=== PATIENT | male | born 1960 | race Caucasian/White ===

== ENCOUNTER → 2020-05-18 15:29 | Outpatient (POV) | payer SELFPAY | PROVIDERS: Visit Provider Dermatology | DX: Z00.00 Encounter for general adult medical examination without abnormal findings (principal) ==

== ENCOUNTER 2020-07-23 15:43 | Emergency (ER) | payer OTHER, SELFPAY ==
[2020-07-23 15:50] VITALS: BP 128/84; PULSE 68; RESP 16; TEMP 36.7; O2SAT 95; BMI 28.8
--- NOTE | 2020-07-23 16:07 | HMH.EDUTC ---
[facility] Disposition Clinical Impression: Exposure to COVID-19 virus Disposition: Home, Self-Care Condition on Discharge: Good Instructions: Preventing the Spread of Coronavirus Discharge Instructions Referrals: Osiel June MD [Primary Care Provider] - Time of Disposition: 16:08 Medical Decision Making - Shaun Inquiry Pt receiving controlled substance: No Vital Signs: 07/23/20 15:50 Temperature 98.1 F Temperature Source Oral Pulse Rate [Right Brachial] 68 Respiratory Rate 16 Blood Pressure [Right Arm] 128/84 Blood Pressure Mean [Right Arm] 98 Blood Pressure Source [Right Arm] Automatic Cuff Blood Pressure Position [Right Arm] Sitting 02 Sat by Pulse Oximetry 95 Oxygen Delivery Method Room Air Orders (Tests/Meds): ORDERS Category Date Time Status Covid-19 Nasal PCR Sendout Routine Lab 07/23/20 16:03 Ordered [facility] HPI - General Stated complaint: covid test Time Seen by Provider: 07/23/20 16:07 Mode of Arrival: Ambulatory Source of Information: Patient Limitations: No Limitations Description of Symptoms (Recalled from Triage Doc. by RN): PATIENT REQUESTING COVID TEST; DENIES EXPOSURE OR SYMPTOMS HEENT Symptoms (Recalled from RN notes): No Resp Symptoms (Recalled from RN notes): No Skin Symptoms (Recalled from RN notes): No MS Symptoms (Recalled from RN notes): No Functional Status (Recalled from RN notes): WNL - History of Present Illness Provider Complaint: Patient requesting COVID19 testing before visiting family next week. No known exposure. No symptoms. Treatments prior to arrival: none - Related Data Allergies Allergy/AdvReac Type Severity Reaction Status Date / Time No Known Allergies Allergy Verified 07/19/18 18:19 - Worker's Comp Is this a Worker's Comp case?: No [facility] History - Hepatitis A Screen Drug use history?: No High risk sexual behaviors?: No History of sexually transmitted infection?: No Currently employed?: No Childcare worker?: No Do you have indoor plumbing?: Yes Do you have electricity?: Yes Attestation statement:: This patient has been screened for Hepatitis A risk factors. I have reviewed the patient's past medical history: Yes - Social History Alcohol Intake: never Occupational Status: other ROS Obtained: Yes All systems reviewed & no additional complaints Physical Exam - General General appearance: alert, in no apparent distress - Head Head exam: normocephalic - Eye Eye exam: Present: PERRL - Chest Chest inspection: Present: symmetric chest wall rise - Respiratory Respiratory exam: Present: normal lung sounds bilaterally - Cardiovascular Cardiovascular exam: Present: regular rate, normal rhythm - Neurological Exam Neurological exam: Present: alert, oriented X3 - Psychiatric Psychiatric exam: Present: normal affect, normal mood - Skin Skin exam: Present: warm, dry
[2020-07-23 16:08] VITALS: BP 128/84; PULSE 68; RESP 16; TEMP 36.7; O2SAT 95
[2020-07-25 08:27] LABS: Covid-19 Nasal PCR Sendout UK Not Detected
== END 2020-07-23 16:10 | disposition home or self-care (01) ==
PROVIDERS: Physician Assistant; Emergency Provider Nurse Practitioner; PCP Family Medicine
DX: Z20.828 Contact with and (suspected) exposure to other viral communicable diseases (principal)
CPT/HCPCS: 99201; U0003

== ENCOUNTER 2020-08-09 15:21 | Emergency (ER) | payer OTHER, SELFPAY ==
[2020-08-09 15:35] VITALS: BP 147/76; PULSE 81; RESP 18; TEMP 36.6; O2SAT 98; BMI 29.5
--- NOTE | 2020-08-09 15:55 | HMH.EDUTC ---
[facility] [place] Disposition Clinical Impression: Encounter for laboratory testing for COVID-19 virus Disposition: Home, Self-Care Condition on Discharge: Good Instructions: Diarrhea, DI for Vomiting -- Adult, DI for COVID-19 (Suspected or Confirmed ), Coronavirus Disease 2019, Preventing the Spread of Coronavirus Discharge Instructions Additional Instructions: *Monitor Temp, Over the counter Motrin or Tylenol as directed/as needed Tylenol every 4 hours and Motrin every 6 hours (as long as your family doctor has told you that you can take it) for fever or pain. and straight to ER if unable to lower temp less than 101.0 after medication given ? Avoid fruit juices, as these do not replace minerals and can actually increase diarrhea. ? Children and adults can use sports drinks to replenish electrolytes. Younger children and infants should use products formulated for children, like oral rehydration solutions. ? Eat food in small amounts and let your stomach recover. ? Get lots of rest. You may feel tired or weak. ? No greasy or fried foods for the next 24-48 hours BRAT diet Bananas Rice Apples and [place] ? Make sure to drink plenty of liquids ? Return if needed ? Straight to ER if any life threatening symptoms ? Zofran as prescribed ? Follow up with family doctor in the next 48-72 hours if no improvement or any worsening of symptoms Follow up IMMEDIATELY for new or worsening symptoms or no Noticeable improvement over the next 48-72 hours. 911 for difficulty breathing or swallowing You were tested for today for COVID19 your test result should be back in the next 24-48 hours, you may call to the [facility] to see if your test results are back in the next 48 hours [phone] [facility] hours are 9am-9pm You was given a handout with instructions for Self Quarantine and Self isolation for while you wait on test results and what to do if they are positive If you are positive the Health Dept will be contacting you also Prescriptions: Ondansetron [Zofran 4mg ODT] 4 mg PO TIDP PRN #10 tab PRN Reason: Vomiting Transmission Status: Pending to [id number] Referrals: Osiel June MD [Primary Care Provider] - As needed Forms: Work/School Release Time of Disposition: 15:57 Medical Decision Making - Shaun Inquiry Pt receiving controlled substance: No Shaun was queried for this patient: No Vital Signs: 08/09/20 15:35 Temperature 97.8 F Temperature Source Oral Pulse Rate [Right Brachial] 81 Respiratory Rate 18 Blood Pressure [Right Arm] 147/76 H Blood Pressure Mean [Right Arm] 99 Blood Pressure Source [Right Arm] Automatic Cuff Blood Pressure Position [Right Arm] Sitting 02 Sat by Pulse Oximetry 98 Oxygen Delivery Method Room Air Orders (Tests/Meds): ORDERS Category Date Time Status Covid-19 Nasal PCR ([facility]) Routine Lab 08/09/20 15:40 Received [facility] [place] HPI - General Stated complaint: covid test Time Seen by Provider: 08/09/20 15:55 Mode of Arrival: Ambulatory Source of Information: Patient Limitations: No Limitations Description of Symptoms (Recalled from Triage Doc. by RN): PATIENT C/O DIARRHEA AND VOMITING SINCE LAST NIGHT. WANTS A COVID TEST HEENT Symptoms (Recalled from RN notes): No Resp Symptoms (Recalled from RN notes): No Skin Symptoms (Recalled from RN notes): No MS Symptoms (Recalled from RN notes): No Functional Status (Recalled from RN notes): WNL - History of Present Illness Provider Complaint: Patient state that he started having some nausea, vomiting and diarrhea last night with last eppisodes around 1030 this morning States that had a stomach bug about a week ago but he wanted to come in to get tested for COVID prior to going back to work due to symptoms - Related Data Previous Rx's Medication Instructions Recorded Ondansetron [Zofran 4mg ODT] 4 mg PO TIDP PRN #10 tab 08/09/20 Allergies Allergy/AdvReac Type Severity Reaction Status Date / Time No Known Allergies Allergy Verified 07/06
[2020-08-09 16:06] VITALS: BP 147/76; PULSE 81; RESP 18; TEMP 36.6; O2SAT 98
== END 2020-08-09 16:08 | disposition home or self-care (01) ==
PROVIDERS: Emergency Provider Nurse Practitioner; PCP Family Medicine
DX: Z20.822 Contact with and (suspected) exposure to COVID-19 (principal)
CPT/HCPCS: 99202; G0463; U0003

== ENCOUNTER → 2020-10-12 14:24 | Outpatient (POV) | payer OTHER, SELFPAY ==
[2020-10-12 15:09] LABS: Basophils % 0.6 % (0.1-2.0); Eosinophils # 0.2 K/mm3 (0.0-0.4); Eosinophils % 2.5 % (0.1-12.0); Hematocrit 45.1 % (42.0-52.0); Hemoglobin 14.6 g/dL (14.1-18.0); Lymphocytes # 2.2 K/mm3 (0.7-4.5); Lymphocytes % 31.7 % (10-50); Mean Corpuscular HGB Conc 32.4 g/dL (31.8-35.4); Mean Corpuscular Hemoglobin 29.6 pg (27.0-31.2); Mean Corpuscular Volume 91.4 fl (80-94); Monocytes # 0.5 K/mm3 (0.1-1.0); Monocytes % 6.4 % (1.7-9.3); Neutrophils # 4.1 K/mm3 (1.8-7.8); Neutrophils % 58.8 % (37.0-80.0); Platelet Count 269 K/mm3 (142-424); Red Blood Count 4.94 M/mm3 (4.60-6.20); Red Cell Distribution Width 13.8 % (11.5-17.5)
[2020-10-12 15:43] LABS: Alanine Aminotransferase 39 U/L (12-78); Albumin Level 4.6 g/dl (3.5-5.0); Albumin/Globulin Ratio 1.6 (1.1-1.8); Alkaline Phosphatase 59 U/L (38-126); Anion Gap 12.3 mEq/L (5-15); Aspartate Amino Transferase 39 U/L (17-59); Bilirubin,Total 0.4 mg/dl (0.2-1.3); Blood Urea Nitrogen 26 mg/dl (9-20); Calcium 9.5 mg/dl (8.4-10.2); Carbon Dioxide 25 mmol/L (22.0-30.0); Chloride 106 mmol/L (98-107); Estimated Glomerular Filt Rate 57 ml/min (>60); GFR (African American) 68 ML/MIN (>60); Globulin 2.8 g/dL (1.3-3.2); Glucose 91 mg/dl (74-100); Potassium 4.3 mmoL/L (3.5-5.1); Sodium 139 mmol/L (136-145); Total Protein,Serum 7.4 g/dl (6.3-8.2)
[2020-10-14 13:45] LABS: Hep A Ab, IgM Negative (Negative); Hepatitis B Core Antibody IgM Negative (Negative); Hepatitis B Surface Antigen Negative (Negative)
[2020-10-14 14:22] LABS: Hepatitis C Antibody <0.1 s/co ratio (0.0-0.9)
[2020-10-16 09:34] LABS: QuantiFERON-TB Gold Plus Negative (Negative)
== END ==
PROVIDERS: Visit Provider Dermatology
DX: R94.4 Abnormal results of kidney function studies (principal)
CPT/HCPCS: 36415; 80053; 80074; 85025; 86480

== ENCOUNTER → 2021-06-07 15:52 | Outpatient (CLI) | payer OTHER, SELFPAY | PROVIDERS: PCP Surgery; Visit Provider Nurse Practitioner | DX: Z20.822 Contact with and (suspected) exposure to COVID-19 (principal) | CPT/HCPCS: C9803; U0003; U0005 ==

== ENCOUNTER 2021-06-09 08:47 | Day surgery (SDC) | payer OTHER, SELFPAY ==
[2021-06-01 13:39] VITALS: BMI 30.2
[2021-06-09 09:00] VITALS: BP 130/74; PULSE 58; RESP 18; TEMP 36.7; O2SAT 99
--- NOTE | 2021-06-09 09:32 | HMH.ANESCL ---
[facility] Anesthesia Checklist - Patient Identification Patient Identification: Arm Band - Structural Data Admitted From: Home Planned Operative Procedure/s: colonoscopy Consent for Planned Operative Procedure(s) Verified: Yes Verified Documents: Surgical Consent, History and Physical - NPO Status Verified Time NPO: 00:00 - Additional verifications Anesthesia Reactions: No - Airway Assessment C-Spine Mobility Assessed: Yes (mp2) TMJ Mobility Assessed: Yes Dentition: Good Dentition - Neurological Assessment Level of Consciousness: Awake, Alert - Anesthesia Plan Anesthesia Risk discussed: Yes Anesthesia Plan: Verified ASA Class: II Anesthesia Type: [facility] History I have reviewed the patient's past medical history: Yes Medical History: Denies:: Cancer, Diabetes Mellitus Type 1, Diabetes Mellitus Type 2, Internal Pacemaker, MRSA, Seizures *Have you ever received a pneumonia vaccine?: No *Have you received a flu vaccine this season?: Yes Anesthesia experience/problems:: nac Other Surgeries: Yes: Colonoscopy. No: Pacemaker Amputation: No Fractures: No - *Social History Last grade of school completed: High school graduate Smoking Status: Never smoker Alcohol Intake: never Substance Use Type: denies use *Occupational Status:: employed *Travel in the last 8 weeks: None Family Hx:: No significant family history
[2021-06-09 10:41] VITALS: O2SAT 98
--- NOTE | 2021-06-09 11:26 | P.PCN_ITS ---
- Procedure: Date: 06/09/21 Patient Date of :: 1960 Procedure Performed:: Colonoscopy with polypectomy Indications:: Screening Performing Provider:: Vaughn Estrada MD Referring Provider:: . Sedation:: Monitored anesthesia care Procedure:: After informed consent was obtained the patient was taken to the endoscopy suite. Sedation ensued after the patient was transferred to the left lateral decubitus position. Pulse, blood pressure, and oxygen saturation were monitored throughout the procedure. Digital rectal exam revealed no significant ab normality. The colonoscope was placed in position. The entire colon was evaluated. The colonoscope was carefully removed and the patient was transferred to recovery in stable condition. Please see findings and specimens below for detail. Findings:: Bowel preparation fair to moderate Hemorrhoidal tag/cushions Moderate spasticity Sigmoid diverticulosis Polyps (see specimens) Specimens:: Sessile lobulated transverse colon polyp (snare) Anal canal polyp/hemorrhoid (snare) Recommendations:: Timing of repeat colonoscopy is pending pathology but likely be between 3-5 years. Complications:: No immediate Estimated blood obtained (mL): 1
[2021-06-09 11:27] VITALS: BP 103/55; PULSE 64; RESP 18; TEMP 36.3; O2SAT 92
[2021-06-09 11:45] VITALS: BP 114/64; PULSE 55; RESP 18; O2SAT 98
[2021-06-09 11:58] VITALS: BP 117/86; PULSE 53; RESP 18; O2SAT 98
== END 2021-06-09 12:00 | disposition home or self-care (01) ==
PROVIDERS: PCP Family Medicine; Visit Provider Surgery
PROC: 0DJD8ZZ Inspection of Lower Intestinal Tract, Via Natural or Artificial Opening Endoscopic (ICD-10-PCS; CPT 45385; principal; 2021-06-09 10:00)
DX: Z12.11 Encounter for screening for malignant neoplasm of colon (principal); K63.5 Polyp of colon; K64.9 Unspecified hemorrhoids; K57.30 Diverticulosis of large intestine without perforation or abscess without bleeding; K58.9 Irritable bowel syndrome, unspecified; Z79.899 Other long term (current) drug therapy
CPT/HCPCS: 45385

== ENCOUNTER → 2021-10-18 14:47 | Outpatient (POV) | payer OTHER, SELFPAY ==
[2021-10-18 15:54] LABS: Basophils # 0.1 K/mm3 (0-0.2); Basophils % 0.7 % (0.1-2.0); Eosinophils # 0.3 K/mm3 (0.0-0.4); Hematocrit 44.4 % (42.0-52.0); Hemoglobin 14.8 g/dL (14.1-18.0); Lymphocytes # 2.3 K/mm3 (0.7-4.5); Lymphocytes % 31.9 % (10-50); Mean Corpuscular HGB Conc 33.3 g/dL (31.8-35.4); Mean Corpuscular Hemoglobin 31.3 pg (27.0-31.2); Mean Corpuscular Volume 94.2 fl (80-94); Mean Platelet Volume 7.4 fl (7.4-10.4); Monocytes # 0.6 K/mm3 (0.1-1.0); Monocytes % 7.8 % (1.7-9.3); Neutrophils % 55.6 % (37.0-80.0); Platelet Count 267 K/mm3 (142-424); Red Blood Count 4.72 M/mm3 (4.60-6.20); Red Cell Distribution Width 13.6 % (11.5-17.5); White Blood Count 7.1 K/mm3 (4.8-10.8)
[2021-10-18 16:59] LABS: Alanine Aminotransferase 48 U/L (12-78); Albumin Level 4.4 g/dl (3.5-5.0); Albumin/Globulin Ratio 1.7 (1.1-1.8); Alkaline Phosphatase 49 U/L (38-126); Anion Gap 9.3 mEq/L (5-15); Aspartate Amino Transferase 40 U/L (17-59); Bilirubin,Total 0.5 mg/dl (0.2-1.3); Blood Urea Nitrogen 24 mg/dl (9-20); Carbon Dioxide 28 mmol/L (22.0-30.0); Chloride 104 mmol/L (98-107); Estimated Glomerular Filt Rate 76 ml/min (>60); GFR (African American) 92 ML/MIN (>60); Globulin 2.6 g/dL (1.3-3.2); Glucose 96 mg/dl (74-100); Potassium 4.3 mmoL/L (3.5-5.1); Sodium 137 mmol/L (136-145)
[2021-10-20 21:07] LABS: QuantiFERON-TB Gold Plus Negative (Negative)
== END ==
PROVIDERS: Visit Provider Dermatology
DX: R94.4 Abnormal results of kidney function studies (principal); Z11.1 Encounter for screening for respiratory tuberculosis; Z79.899 Other long term (current) drug therapy
CPT/HCPCS: 36415; 80053; 85025; 86480

== ENCOUNTER → 2022-09-19 11:00 | Outpatient (CLI) | payer OTHER, SELFPAY ==
[2022-09-22 00:09] LABS: QuantiFERON-TB Gold Plus Negative (Negative)
== END ==
PROVIDERS: PCP Family Medicine; Visit Provider Dermatology
DX: L40.8 Other psoriasis (principal)
CPT/HCPCS: 36415; 86480

== ENCOUNTER 2024-03-18 11:06 | Outpatient (POV) | payer OTHER, SELFPAY | END 2024-03-18 23:59 | disposition home or self-care (01) | LOC: SC 11:06 | PROVIDERS: PCP Family Medicine; Visit Provider Dermatology | DX: Z00.00 Encounter for general adult medical examination without abnormal findings (principal) ==

== ENCOUNTER 2024-07-30 15:58 | Emergency (ER) | payer BC, SELFPAY ==
[2024-07-30 15:59] VITALS: BP 155/85; PULSE 87; RESP 16; TEMP 37.1; O2SAT 97; BMI 30.2
--- NOTE | 2024-07-30 16:03 | ED_ITS ---
<Statement entered by Pati Perry DO - 07/30/24 22:09> I was consulted by the DEANNE, and we discussed the complexity of the problems being addressed. I approved the treatment and management plan for this patient's care in the emergency department, thus performing a substantive portion of the medical decision making. Pati Perry DO Discharge Plan Disposition Patient Disposition: Home, Self-Care Condition: Good Prescriptions Prescriptions: New gkvcmbdwiakrxme-vugsknpgh-MA [Bromfed DM] 2-30-10 mg/5 mL syrup 5 ml PO Q4H PRN (Reason: sinus symptoms) Qty: 118 0RF albuterol sulfate 90 mcg/actuation HFA aerosol inhaler 1 inh inhalation Q4H PRN (Reason: shortness of breath or wheezing) Qty: 8.5 0RF prednisone 50 mg tablet 50 mg PO DAILY 5 Days Qty: 5 0RF No Action adalimumab 40 MG/0.8 ML syringe kit 40 mg SQ WEEKLY Rx Instructions: every 14 days Referrals Follow up/Referrals: Osiel June MD [Primary Care Provider] - See instructions Activity Restrictions/Add. Instructions Additional Instructions/Restrictions: Continue taking Tylenol alternating every 4 hours for Motrin for your constitutional symptoms. I have sent Bromfed-DM to help with your cough. If you show no improvement or worsening signs or symptoms follow-up with your PCP next week or return to the ER as needed. Clinical Impressions Clinical Impression: Influenza A Instructions Patient Instructions: DI for Influenza -- Adult Print Language Print Language: Mohawk Discharge ED Provider: Pati Perry General Adult HPI General Chief complaint: Upper Respiratory Infection Stated complaint: opal, cough Time Seen by Provider: 07/30/24 16:03 History of Present Illness HPI narrative: Patient presents for evaluation of a persistent cough. Patient gives a 1 week history of a persistent cough. He denies any fever chills hemoptysis hematochezia melena nausea vomiting diarrhea shortness of breath. He has no significant past medical history and is on no home medications. Related Data Home Medications ?Medication ?Instructions ?Recorded ?Confirmed adalimumab 40 mg/0.8 mL 40 mg SQ WEEKLY rash 06/01/21 06/15/21 subcutaneous syringe kit Previous Rx's ?Medication ?Instructions ?Recorded albuterol sulfate 90 mcg/actuation 1 inh inhalation Q4H PRN shortness 07/30/24 aerosol inhaler of breath or wheezing #8.5 grams pstbfbcavqbjxtn-uwtmwxefirtkcge-PO 5 ml PO Q4H PRN sinus symptoms 07/30/24 2 mg-30 mg-10 mg/5 mL oral syrup #118 mL (Bromfed DM) prednisone 50 mg tablet 50 mg PO DAILY 5 days #5 tabs 07/30/24 Allergies Allergy/AdvReac Type Severity Reaction Status Date / Time No Known Allergies Allergy Verified 06/15/21 10:30 [facility] Disclaimer: The information contained in this section may have been updated after the patient was seen, as this information can be updated by other users. Social History Smoking Status: Never smoker alcohol intake: never substance use type: denies use current occupational status: employed Travel in the last 8 weeks: None caffeine: No Have you lived/traveled outside [place] in past 30 days?: No Contact w/someone who lives/traveled outside US past 30 days?: No Exposure to someone with infectious disease in past 14 days?: No Do you have a fever (greater than 100.4 F or 38 C)?: No Have you tested positive for COVID-19: No Exposed to someone with COVID-19 in past 14 days?: No Do you have a sore throat?: No Do you have a cough?: Yes Do you have any weakness?: No Do you have any diarrhea?: No Are you experiencing any unusual bleeding?: No Do you have any muscle aches/pain?: Yes Do you have any abdominal pain?: No Are you experiencing loss of taste or smell?: No Other Medical History Have you received the Flu Vaccine for this season: Yes Have you received the Pneumonia Vaccine: No ROS Obtained: Yes Systems reviewed as appropriate & no additional complaints except as documented Physical Exam General General appearance: alert and in no apparent distress Respiratory Respiratory exam: Present normal lung sounds bilaterally and accessory muscle use; Absent respiratory distress or wheezes Cardiovascular Cardiovascular exam: Present regular rate Neurological Exam Neurological exam: Present alert and oriented X3 Medical Decision Making Medical Records Medical records reviewed: Yes I reviewed the patient's medical records. Screening: Per USPSTF and CDC recommendations, given the prevalence of disease in our region, it is our hospital?s policy to screen for HIV and viral Hepatitis for all patients aged 18 and over and those with ongoing risk factors. Shaun Inquiry Pt receiving controlled substance: No Vital Signs: 07/30/24 15:59 07/30/24 16:30 07/30/24 17:00 Temperature 98.7 F Temperature Source Oral Pulse Rate 71 92 H Pulse Rate [Left Radial] 87 Respiratory Rate 16 Blood Pressure 129/73 154/77 H Blood Pressure [Right Arm] 155/85 H Blood Pressure Mean 91 Blood Pressure Mean [Right Arm] 108 Blood Pressure Source Blood Pressure Position 02 Sat by Pulse Oximetry 97 100 96 Oxygen Delivery Method Room Air Room Air 07/30/24 17:30 07/30/24 18:15 Temperature 98.7 F Temperature Source Oral Pulse Rate 92 H 82 Pulse Rate [Left Radial] Respiratory Rate 22 Blood Pressure 129/68 114/62 Blood Pressure [Right Arm] Blood Pressure Mean 90 Blood Pressure Mean [Right Arm] Blood Pressure Source Automatic Cuff Blood Pressure Position Supine 02 Sat by Pulse Oximetry 96 Oxygen Delivery Method Room Air Lab Data Lab results reviewed: Yes I reviewed the patient's lab results. Lab Results 07/30/24 16:14: SARS-CoV-2 (PCR) Not detected, Influenza A Untype (PCR) Detected A, Influenza Type B (PCR) Not detected, POC RSV Rapid Negative 07/30/24 16:20: WBC 9.0, RBC 4.49 L, Hgb 13.6 L, Hct 39.3 L, MCV 87.5, MCH 30.3, MCHC 34.6, RDW 13.1, Plt Count 205, MPV 9.1, Neut % (Auto) 75.0, Lymph % (Auto) 11.5, Caroline % (Auto) 11.0 H, Eos % (Auto) 1.8, Baso % (Auto) 0.4, Neut # (Auto) 6.7, Lymph # (Auto) 1.0, Caroline # (Auto) 1.0, Eos # (Auto) 0.2, Baso # (Auto) 0.0, Sodium 135 L, Potassium 3.8, Chloride 109 H, Carbon Dioxide 22, Anion Gap 7.8, B UN 23 H, Creatinine 1.20, Estimated Creat Clear 83, Estimated GFR 61, Est GFR ( Amer) 74, Glucose 92, Calcium 8.9, Total Bilirubin 0.3, AST 48, ALT 56, Alkaline Phosphatase 60, Total Protein 6.9, Albumin 4.3, Globulin 2.6, Albumin/Globulin Ratio 1.7, HIV Ag/Ab Combo Qual Negative 07/30/24 16:20 07/30/24 16:20 Orders (Tests/Meds): ED MEDICATIONS Discontinued Medications Generic Name Dose Route Start Last Admin Trade Name Chester PRN Reason Stop Dose Admin Acetaminophen 1,000 mg 07/30/24 16:04 07/30/24 16:22 Acetaminophen 500mg Tab PO 07/30/24 16:05 1,000 mg ONCE ONE Administration Albuterol/Ipratropium 3 ml 07/30/24 16:09 07/30/24 16:22 Ipratropium/Albuterol 3 Ml Neb IH 07/30/24 16:10 3 ml ONCE ONE Administration Dexamethasone Sodium Phosphate 10 mg 07/30/24 16:09 07/30/24 16:22 Dexamethasone 4mg/Ml 5ml Mdv IV 07/30/24 16:10 10 mg ONCE ONE Administration Ibuprofen 800 mg 07/30/24 16:04 07/30/24 16:23 Ibuprofen 400 Mg Tablet PO 07/30/24 16:05 800 mg ONCE ONE Administration ORDERS Category Date Time Status Chest XR 2 view (NOT portable) [XR chest 2V] Stat Exams 07/30/24 16:04 Completed CBC w/Auto Diff [Complete Blood Count Auto Diff] Stat Lab 07/30/24 16:20 Completed CMP [Comprehensive Metabolic Panel] Stat Lab 07/30/24 16:20 Completed HIV Combo Stat Lab 07/30/24 16:20 Completed Hep C Ab with Reflex to RNA Stat Lab 07/30/24 16:20 Received RSV Rapid Ab Screen Stat Lab 07/30/24 16:14 Completed Rapid PCR Covid and Flu A/B Stat Lab 07/30/24 16:14 Completed Medical Decision Narrative: In summary patient is a 64-year-old male who presents to the emergency department for evaluation of persistent cough for 1 week. Patient is hemodynamically stable upon arrival, afebrile satting at 97% on room air. Physical exam is remarkable for clear breath sounds but coarse bronchial cough that is nonproductive with no increased work of breathing, breath sounds are clear, no adventitious sounds.. Differential diagnosis includes viral bacterial respiratory tract infection. Initial workup will be conducted with hematologic labs plain film chest x-ray COVID and flu swabs. Initial interventions include Tylenol ibuprofen DuoNeb Decadron. Initial workup reviewed by me shows his hematologic labs are nonactionable but is respiratory swabs are positive for influenza A.. Upon repeat evaluation patient reported significant improvement in his cough after initial interventions.. Given this patient is appropriate for discharge with prescription for albuterol inhaler prednisone Bromfed strict return precautions. Patient to follow-up with PCP within 48 hours for recheck. Critical Care Critical Care Time Critical Care Time: No
--- NOTE | 2024-07-30 16:04 | XR_ITS ---
PROCEDURE INFORMATION: Exam: XR Chest Exam date and time: 07/30/2024 4:44 PM Age: 64 years old Clinical indication: Cough; Additional info: Persistent cough TECHNIQUE: Imaging protocol: Radiologic exam of the chest. Views: 2 views. COMPARISON: No relevant prior studies available. FINDINGS: Lungs: There is mild elevation of the right hemidiaphragm. The lungs appear clear. No focal areas of consolidation. Pleural spaces: No pleural effusions. Negative for pneumothorax. Heart/Mediastinum: Cardiac silhouette and pulmonary vasculature are within range of normal. Bones/joints: There is no evidence of acute fracture. IMPRESSION: Negative for an acute cardiopulmonary abnormality.
[2024-07-30 16:21] LABS: Coronavirus 19, PCR Not Detected (NotDetected); Influenza B, PCR Not Detected (NotDetected)
[2024-07-30] MEDS: ACETAMINOPHEN 500MG TAB 1000 MG PO (16:22)
[2024-07-30] MEDS: IPRATROPIUM/ALBUTEROL 3 ML NEB IH (16:22)
[2024-07-30] MEDS: DEXAMETHASONE 4MG/ML 5ML MDV 10 MG IV (16:22)
[2024-07-30] MEDS: IBUPROFEN 400 MG TABLET 800 MG PO (16:23)
[2024-07-30 16:30] VITALS: BP 129/73; PULSE 71; O2SAT 100
[2024-07-30 16:30] LABS: Albumin Level 4.3 g/dl (3.5-5.0); Chloride 109 mmol/L (98-107); Eosinophils % 1.8 % (0.1-12.0); Hematocrit 39.3 % (42.0-52.0); Hemoglobin 13.6 g/dL (14.1-18.0); Lymphocytes % 11.5 % (10-50); Mean Corpuscular HGB Conc 34.6 g/dL (31.8-35.4); Mean Corpuscular Hemoglobin 30.3 pg (27.0-31.2); Mean Corpuscular Volume 87.5 fl (80-94); Mean Platelet Volume 9.1 fl (7.4-10.4); Platelet Count 205 K/mm3 (142-424); Potassium 3.8 mmoL/L (3.5-5.1); Red Blood Count 4.49 M/mm3 (4.60-6.20); Red Cell Distribution Width 13.1 % (11.5-17.5); Sodium 135 mmol/L (136-145)
[2024-07-30 16:31] LABS: Basophils % 0.4 % (0.1-2.0); Eosinophils # 0.2 K/mm3 (0.0-0.4); Neutrophils # 6.7 K/mm3 (1.8-7.8)
[2024-07-30 16:33] LABS: Alanine Aminotransferase 56 U/L (12-78); Albumin/Globulin Ratio 1.7 (1.1-1.8); Alkaline Phosphatase 60 U/L (38-126); Anion Gap 7.8 mEq/L (5-15); Aspartate Amino Transferase 48 U/L (17-59); Bilirubin,Total 0.3 mg/dl (0.2-1.3); Blood Urea Nitrogen 23 mg/dl (9-20); Carbon Dioxide 22 mmol/L (22.0-30.0); Creatinine Clearance Estimated 83 mL/min (50-200); Estimated Glomerular Filt Rate 61 ml/min (>60); GFR (African American) 74 ML/MIN (>60); Globulin 2.6 g/dL (1.3-3.2); Total Protein,Serum 6.9 g/dl (6.3-8.2)
[2024-07-30 16:34] LABS: Calcium 8.9 mg/dl (8.4-10.2); Glucose 92 mg/dl (74-100)
[2024-07-30 16:45] LABS: Influenza A, PCR Detected (NotDetected)
[2024-07-30 17:00] VITALS: BP 154/77; PULSE 92; O2SAT 96
[2024-07-30 17:04] LABS: RSV Rapid Ab Screen Negative (Negative)
[2024-07-30 17:30] VITALS: BP 129/68; PULSE 92; O2SAT 96
[2024-07-30 17:34] LABS: HIV Combo NEGATIVE (Negative)
[2024-07-30 18:15] VITALS: BP 114/62; PULSE 82; RESP 22; TEMP 37.1; O2SAT 98
[2024-08-01 07:08] LABS: HCV Ab Non Reactive (Non Reactive)
== END 2024-07-30 18:15 | disposition home or self-care (01) ==
PROVIDERS: Physician Assistant; Emergency Provider Emergency Medicine; PCP Family Medicine
DX: R05.9 Cough, unspecified (principal); R09.81 Nasal congestion
CPT/HCPCS: 71046; 80053; 85025; 86803; 87389; 87636; 87807; 96374; 99283; J1100; J7620